=== PATIENT | male | born 1995 | race Caucasian/White ===

== ENCOUNTER 2019-06-13 21:40 | Emergency (ER) | payer OTHER ==
[~2019-06-13] VITALS: Ht 172.7 cm; Wt 91.6 kg
[~2019-06-13 21:40] MED LIST: ALPR0.5T PO; OSEL75CA PO
--- NOTE | 2019-06-13 21:44 | ED.ADGEN ---
Past History Past Medical History: No Pertinent History Past Surgical History: Appendectomy Alcohol Use: Rarely Drug Use: None Adult General Chief Complaint Chief Complaint ".. I fell into edge of door...".. " No fight or anything.. ".. " I just slipped and hit the edge of the door..." HPI HPI Patient is a 24 year old male who presents with above hx and complaints of Lip, head contusion and lacerations. Patient has 2 cm laceration Rt. eyebrow and forehead and 2 cm laceration or Rt upper lip. Each laceration has contusion to tissue surrounding the laceration site. Lip laceration appeared to be missing some tissue to the crush type injury. Patient has good bite. He denies any loss of consciousness. No headache, pain only at site of contusion/ laceration. Patient denies any dizziness or other symptoms. Patient does not remember his last tetanus. Patient is normally healthy. No history immunosuppression. No history of travel. Patient does admit to intake of alcohol tonight. Review of Systems Review of Systems Constitutional: Denies fever or chills [] Eyes: Denies change in visual acuity, redness, or eye pain [] HENT: Denies nasal congestion or sore throat []complains of laceration to right eyebrow and upper lip Respiratory: Denies cough or shortness of breath [] Cardiovascular: No additional information not addressed in HPI [] GI: Denies abdominal pain, nausea, vomiting, bloody stools or diarrhea [] : Denies dysuria or hematuria [] Musculoskeletal: Denies back pain or joint pain [] Integument: Denies rash or skin lesions [] Neurologic: Denies headache, focal weakness or sensory changes [] Endocrine: Denies polyuria or polydipsia [] All other systems were reviewed and found to be within normal limits, except as documented in this note. Family History Family History Noncontributory Current Medications Current Medications Current Medications Medications (Trade) Dose Ordered Sig/Lilia Start Time Stop Time Status Last Admin Dose Admin Bacitracin (Bacitracin Topical Pkt) 1 pkt 1X ONCE 06/13/19 22:30 06/13/19 22:31 DC 06/13/19 22:16 1 PKT Diphtheria/ Tetanus/Acell Pertussis (Boostrix) 0.5 ml ONCE ONCE 06/13/19 22:30 06/13/19 22:31 DC 06/13/19 22:16 0.5 ML Lidocaine/ Epinephrine (Xylocaine 2%-Epi 1:100,000) 20 ml 1X ONCE 06/13/19 22:30 06/13/19 22:31 DC 06/13/19 22:16 20 ML Allergies Allergies Allergies Coded Allergies Type Severity Reaction Last Updated Verified No Known Drug Allergies 01/02/17 No Physical Exam Physical Exam Constitutional: Well developed, well nourished, no acute distress, non-toxic appearance. [] HENT: Normocephalic, 2 cm lacerations to right eyebrow and upper lip, bilateral external ears normal, oropharynx moist, no oral exudates, nose normal. [] Eyes: PERRLA, EOMI, conjunctiva normal, no discharge. [] Neck: Normal range of motion, no tenderness, supple, no stridor. [] Cardiovascular:Heart rate regular rhythm, no murmur [] Lungs & Thorax: Bilateral breath sounds equal apex on auscultation [] Abdomen: Bowel sounds normal, soft, no tenderness, no masses, no pulsatile masses. [] Old scars. Skin: Warm, dry, no erythema, no rash. [] Back: No tenderness, no CVA tenderness. [] Extremities: No tenderness, no cyanosis, no clubbing, ROM intact, no edema. [] Neurologic: Alert and oriented X 3, normal motor function, normal sensory function, no focal deficits noted. []DTRs +2 patella and brachial. Patient is ambulatory without problems. Psychologic: Affect normal, judgement normal, mood normal. [] Current Patient Data Vital Signs Vital Signs Date Time Temp Pulse Resp B/P (MAP) Pulse Ox O2 Delivery O2 Flow Rate FiO2 06/13/19 23:09 97.7 72 18 134/71 (92) 98 Room Air EKG EKG [] Radiology/Procedures Radiology/Procedures Patient declines CT of head[] Course & Med Decision Making Course & Med Decision Making Pertinent Labs and Imaging studies reviewed. (See chart for details) Suture note- irrigated laceration of lip and head with normal saline. Injected edges of laceration with 2% lidocaine with epi. Re-irrigated and cleaned lacerations with normal saline. Placed 4 Prolene 6-0 to laceration on eyebrow and 4 x- 6-0 Prolene to left upper lip. A sentinel stitch placed at lip border. Patient had 1 x 4-0 Vicryl deep stitch to lip. Patient keep laceration clean and dry. No direct shower water. May use peroxide to clean area. To apply Polysporin 4 times a day. Take only Tylenol tonight for pain. Patient return if any concerns. Head injury precautions discussed. Sutures should be removed in 5 days. Patient return of any concerns. Pt. to use Ice pack s and keep head e levated tonight. Advise patient he will have scars. If pt unhappy with scars to have plastic surgery consult after contraction of scar tissue. Use Band-Aid cover laceration. [] Final Impression Final Impression 1. Laceration[] x 2= each approximately 2 cm Dragon Disclaimer Dragon Disclaimer This electronic medical record was generated, in whole or in part, using a voice recognition dictation system. Discharge Summary Visit Information Final Diagnosis Problems Medical Problems: (1) Laceration Status: Acute Brief Hospital Course Allergies Allergies Coded Allergies Type Severity Reaction Last Updated Verified No Known Drug Allergies 01/02/17 No Vital Signs Vital Signs Date Time Temp Pulse Resp B/P (MAP) Pulse Ox O2 Delivery O2 Flow Rate FiO2 06/13/19 23:09 97.7 72 18 134/71 (92) 98 Room Air Brief Hospital Course Mr. Randolph is a 24 old male who presented with laceration to Rt eyebrow and Rt. upper lip. Pt. decline CT. Will be with friends tonight. Will return if any concerns. Discharge Information Condition at Discharge: Stable Disposition/Orders: D/C to Home Dischare Medications Current Medications Diphtheria/ Tetanus/Acell Pertussis (Boostrix) 0.5 ml ONCE ONCE VAX IM Last administered on 06/13/19at 22:16; Admin Dose 0.5 ML; Start 06/13/19 at 22:30; Stop 06/13/19 at 22:31; Status DC Bacitracin (Bacitracin Topical Pkt) 1 pkt 1X ONCE TP Last administered on 06/13/19at 22:16; Admin Dose 1 PKT; Start 06/13/19 at 22:30; Stop 06/13/19 at 22:31; Status DC Lidocaine/ Epinephrine (Xylocaine 2%-Epi 1:100,000) 20 ml 1X ONCE IJ Last administered on 06/13/19at 22:16; Admin Dose 20 ML; Start 06/13/19 at 22:30; Stop 06/13/19 at 22:31; Status DC Active Scripts Active Xanax (Alprazolam) 0.5 Mg Tablet 1 Tab PO TID PRN Tamiflu (Oseltamivir Phosphate) 75 Mg Capsule 1 Cap PO BID Beeon Disclaimer This chart was dictated in whole or in part using Voice Recognition software in a busy, high-work load, and often noisy Emergency Department environment. It may contain unintended and wholly unrecognized errors or omissions. JUAN BARON MD Jun 13, 2019 21:44
[2019-06-13] MEDS ORDERED: BACITRACIN ZINC TOPICAL OINT PACKET. TP ONE (22:30)
[2019-06-13] MEDS ORDERED: LIDOCAINE 2%/EPI 1:100,000 20 ML VIAL. IJ ONE (22:30)
[2019-06-13] MEDS ORDERED: DIPHTH,PERTUSS(ACELL),TET TOX 0.5 ML DISP.SYRIN. VAX IM ONE (22:30)
[2019-06-13 23:09] VITALS: BP 134/71
== END 2019-06-13 23:16 | disposition home or self-care (01) ==
LOC: ER 21:40
DX: S01.511A Laceration without foreign body of lip, initial encounter (principal); S01.111A Laceration without foreign body of right eyelid and periocular area, initial encounter; W01.198A Fall on same level from slipping, tripping and stumbling with subsequent striking against other object, initial encounter; Y93.89 Activity, other specified; Y92.89 Other specified places as the place of occurrence of the external cause; Y99.8 Other external cause status
CPT/HCPCS: 12013; 90471; 90715; 99284

== ENCOUNTER 2019-06-18 11:06 | Emergency (ER) | payer OTHER ==
[~2019-06-18] VITALS: Ht 172.7 cm; Wt 88.5 kg
[2019-06-18 11:12] VITALS: BP 121/68
--- NOTE | 2019-06-18 17:56 | PHYS DOC ---
Past History Past Medical History: No Pertinent History Past Surgical History: Appendectomy Alcohol Use: Occasionally Drug Use: None Adult General Chief Complaint Chief Complaint: SUTURE/STAPLE REMOVAL [facility] 24-year-old male presents for suture removal. They are placed in this facility 5 days ago. The patient was told to return for removal. He's had no further bleeding. Review of Systems Review of Systems Constitutional: Denies fever or chills [] Eyes: Denies change in visual acuity, redness, or eye pain [] HENT: Denies nasal congestion or sore throat [] Respiratory: Denies cough or shortness of breath [] Cardiovascular: No additional information not addressed in HPI [] GI: Denies abdominal pain, nausea, vomiting, bloody stools or diarrhea [] : Denies dysuria or hematuria [] Musculoskeletal: Denies back pain or joint pain [] Integument: Denies rash or skin lesions [] Neurologic: Denies headache, focal weakness or sensory changes [] Endocrine: Denies polyuria or polydipsia [] All other systems were reviewed and found to be within normal limits, except as documented in this note. Allergies Allergies Allergies Coded Allergies Type Severity Reaction Last Updated Verified No Known Drug Allergies 01/02/17 No Physical Exam Physical Exam Constitutional: Well developed, well nourished, no acute distress, non-toxic appearance. [] HENT: Normocephalic, atraumatic, bilateral external ears normal, oropharynx moist, no oral exudates, nose normal. [] Eyes: PERRLA, EOMI, conjunctiva normal, no discharge. [] Neck: Normal range of motion, no tenderness, supple, no stridor. [] Cardiovascular:Heart rate regular rhythm, no murmur [] Lungs & Thorax: Bilateral breath sounds clear to auscultation [] Abdomen: Bowel sounds normal, soft, no tenderness, no masses, no pulsatile masses. [] Skin: Sutures in the upper lip and right eyebrow.[] Back: No tenderness, no CVA tenderness. [] Extremities: No tenderness, no cyanosis, no clubbing, ROM intact, no edema. [] Neurologic: Alert and oriented X 3, normal motor function, normal sensory function, no focal deficits noted. [] Psychologic: Affect normal, judgement normal, mood normal. [] Current Patient Data Vital Signs Vital Signs Date Time Temp Pulse Resp B/P (MAP) Pulse Ox O2 Delivery O2 Flow Rate FiO2 06/18/19 11:12 97.7 65 17 95 Room Air EKG EKG [] Radiology/Procedures Radiology/Procedures [] Course & Med Decision Making Course & Med Decision Making Pertinent Labs and Imaging studies reviewed. (See chart for details) The nurse and I were able to remove the patient's sutures. There were no complications. The skin is healing appropriately. [] Dragon Disclaimer Dragon Disclaimer This electronic medical record was generated, in whole or in part, using a voice recognition dictation system. Departure Departure: Impression: Primary Impression: Visit for suture removal Disposition: HOME, SELF-CARE Condition: STABLE Patient Instructions: Suture Removal-Brief ROOPA LOPEZ DO Jun 18, 2019 17:56
== END 2019-06-18 12:48 | disposition home or self-care (01) ==
LOC: ER 11:06
DX: S01.511D Laceration without foreign body of lip, subsequent encounter (principal); S01.111D Laceration without foreign body of right eyelid and periocular area, subsequent encounter; X58.XXXD Exposure to other specified factors, subsequent encounter
CPT/HCPCS: 99281